=== PATIENT | female | born 1970 | race Two or more races ===

== ENCOUNTER 2016-10-08 15:11 | Emergency (ER) | payer OTHER ==
[~2016-10-08] VITALS: Ht 157.5 cm; Wt 68.0 kg
[~2016-10-08 15:11] MED LIST: DOCU-41 PO; HYDR-3090 PO; HYDR25CA PO; IBUP800T28 PO
[2016-10-08 15:15] VITALS: BP 168/102; PULSE 86; RESP 16; O2SAT 99
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
[2016-10-08 15:45] LABS: BASOPHILS % (AUTO) 0.1 % (0-3); EOSINOPHILS % (AUTO) 0.4 % (0-5); MONOCYTES % (AUTO) 4.9 % (4-12); Mean Corpuscular Hemoglobin 29.3 pg (27.0-35.0); Mean Corpuscular Volume 88.4 fL (81-100); NEUTROPHILS % (AUTO) 84.2 % (40-74); Platelet Count 205 bil/L (150-400)
[2016-10-08] MEDS ORDERED: HYDROmorphone 0.5 mg/0.5 mL iSecure Syringe IVPUSH PRN (15:45)
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
[2016-10-08] MEDS: Ondansetron 2 mg/mL 2 mL Inj IVPUSH PRN ×2 (16:58→17:17)
[2016-10-08 17:19] VITALS: BP 135/70; PULSE 71; O2SAT 98
[2016-10-08] MEDS ORDERED: Promethazine Inj 25 MG in 0.9% Sodium Chloride-Pha MIX 100 ML IV ONE (17:25)
[2016-10-08 18:13] VITALS: BP 112/65; PULSE 68; RESP 16
[2016-10-08] MEDS ORDERED: ONDA4TAB9 PO (18:48)
[2016-10-08] MEDS ORDERED: CYCL5TAB PO (18:48)
[2016-10-08] MEDS ORDERED: HYDR-4003 PO (18:48)
[2016-10-08] MEDS ORDERED: _HYDROcodone/APAP 5-325 mg Tablet PO PRN (19:00)
[2016-10-08] MEDS ORDERED: _Ondansetron ODT 4 mg Tablet PO PRN (19:00)
== END 2016-10-08 19:04 | disposition home or self-care (01) ==
LOC: SED 15:11
DX: S06.0X0A Concussion without loss of consciousness, initial encounter (principal); S01.91XA Laceration without foreign body of unspecified part of head, initial encounter; S40.212A Abrasion of left shoulder, initial encounter; M54.2 Cervicalgia; V43.52XA Car driver injured in collision with other type car in traffic accident, initial encounter; Y93.89 Activity, other specified; Y99.8 Other external cause status; Y92.481 Parking lot as the place of occurrence of the external cause; I10 Essential (primary) hypertension; Z88.0 Allergy status to penicillin
CPT/HCPCS: 12001; 36415; 70450; 71010; 72125; 85025; 96372; 96374; 96375; 99285; J1170; J1885; J2405; J2550

== ENCOUNTER 2016-10-21 11:41 | Emergency (ER) | payer OTHER ==
[~2016-10-21 11:41] MED LIST changes: +CYCL5TAB PO; +HYDR-4003 PO; +ONDA4TAB9 PO
[2016-10-21 11:44] VITALS: BP 154/87; PULSE 75; RESP 16; O2SAT 99
== END 2016-10-21 11:55 | disposition home or self-care (01) ==
LOC: SED 11:41
DX: Z48.02 Encounter for removal of sutures (principal)